=== PATIENT | female | born 1965 | race Caucasian/White ===

== ENCOUNTER 2018-01-15 14:06 | Emergency (ER) | payer MEDICARE ==
[~2018-01-15] VITALS: Ht 172.7 cm; Wt 62.0 kg
[2018-01-15] MEDS ORDERED: ONDANSETRON ODT 4 MG PO ONE (15:00)
[2018-01-15] MEDS ORDERED: SODIUM CHLORIDE FLUSH 10ML SYR IVF ONE (15:00)
[2018-01-15] MEDS ORDERED: KETOROLAC 30 MG/1 ML IVPush ONE (15:00)
[2018-01-15] MEDS ORDERED: DIAZEPAM 5 MG/ML, 2ML IVPush ONE (15:00)
[2018-01-15] MEDS ORDERED: PLEASE ENTER ALLERGIES MC SCH (15:00)
[2018-01-15] MEDS: MORPHINE SULFATE 4 MG/ML, 1ML IVPush PRN ×2 (15:04→16:02)
[2018-01-15] MEDS ORDERED: ONDANSETRON ODT 4 MG ONE (15:07)
[2018-01-15] MEDS ORDERED: MORPHINE SULFATE 4 MG/ML, 1ML ONE ×2 (15:21→16:01)
[2018-01-15] MEDS ORDERED: KETOROLAC 30 MG/1 ML ONE (15:23)
[2018-01-15] MEDS ORDERED: DIAZEPAM 5 MG/ML, 2ML IV ONE (16:30)
[2018-01-15 16:46] VITALS: BP 129/96
== END 2018-01-15 17:10 | disposition home or self-care (01) ==
LOC: ED 16:04
DX: M54.5 Low back pain (principal); Z88.8 Allergy status to other drugs, medicaments and biological substances
CPT/HCPCS: 96374; 96375; 96376; 99284; J1885; J3360; Q0162